=== PATIENT | male | born 1980 | race Hispanic/Latino ===

== ENCOUNTER 2020-05-16 17:06 | Emergency (ER) | payer SELFPAY ==
[~2020-05-16] VITALS: Ht 172.7 cm; Wt 98.0 kg
[2020-05-16] MEDS ORDERED: GNP OMEPRAZOLE20 MG PO (17:48)
[2020-05-16] MEDS ORDERED: GAVISCON EXTRA PO (17:51)
[2020-05-16 18:11] LABS: HEMATOCRIT 43.2 % (39.0-50.0); HEMOGLOBIN 14.4 g/dl (14.0-18.0); IMMATURE GRANULOCYTES 0.1 % (0.0-5.0); MEAN CORPUSCULAR HGB CONC 33.3 g/dL CAL (32.0-36.0); NEUT# 4.53 thou/uL (1.82-7.42); RED BLOOD COUNT 4.8 mill/uL (4.70-6.10); RED CELL DISTRI WIDTH 11.9 % (11.5-15.5)
[2020-05-16 18:12] LABS: URINE BILIRUBIN - DIPSTICK NEGATIVE (NEGATIVE); URINE BLOOD DIPSTICK NEGATIVE (NEGATIVE); URINE COLOR YELLOW; URINE GLUCOSE - DIPSTICK NEGATIVE (NEGATIVE); URINE KETONE NEGATIVE (NEGATIVE); URINE LEUK ESTERASE NEGATIVE (NEGATIVE); URINE NITRITE - DIPSTICK NEGATIVE (Negative); URINE PROTEIN - DIPSTICK NEGATIVE (NEG-TRACE); URINE SPECIFIC GRAVITY <=1.005; URINE UROBILINOGEN - DIPSTICK 0.2 E.U./dL (0.2)
[2020-05-16 18:36] LABS: ALBUMIN 4.8 g/dL (3.2-5.0); ALKALINE PHOSPHATASE 80 u/l (38-126); AMYLASE 57 u/l (30-110); ANION GAP 14 (6-22 (CALC)); BILIRUBIN, TOTAL 0.7 mg/dL (0.0-1.4); BUN 16 mg/dL (9-20); BUN/CREATININE RATIO 17 (12-20 (CALC)); CARBON DIOXIDE 28 mmol/l (22-30); CHLORIDE 101 mmol/l (95-108); CREATININE 0.9 mg/dL (0.7-1.3); ETHYL ALCOHOL 0 mg/dl (0-30); GFR > 60 ML/MIN (>=60 (CALC)); GFR FOR AFR.AMER. > 60 ML/MIN (>=60 (CALC)); LIPASE 188 u/l (23-300); POTASSIUM 4.2 mmol/l (3.5-5.1); SGOT/AST 43 u/l (17-59); SODIUM 139 mmol/l (137-146)
[2020-05-16] MEDS ORDERED: PROTONIX40 MG PO (18:54)
[2020-05-16 19:05] VITALS: BP 147/84
== END 2020-05-16 19:05 | disposition home or self-care (01) | DRG 392 ==
LOC: ED 17:06
DX: K21.9 Gastro-esophageal reflux disease without esophagitis (principal)
CPT/HCPCS: S0164